=== PATIENT | male | born 1995 | race Caucasian/White ===

== ENCOUNTER 2018-06-24 10:11 | Emergency (ER) | payer MEDICAID ==
[~2018-06-24] VITALS: Ht 170.2 cm; Wt 79.1 kg
[2018-06-24 10:52] VITALS: Ht 170.2 cm; Wt 79.1 kg
[2018-06-24 13:08] VITALS: BP 149/81
== END 2018-06-24 13:09 | disposition home or self-care (01) ==
LOC: ED 10:11
DX: S92.531A Displaced fracture of distal phalanx of right lesser toe(s), initial encounter for closed fracture (principal); W22.8XXA Striking against or struck by other objects, initial encounter; Y93.89 Activity, other specified; Y92.89 Other specified places as the place of occurrence of the external cause; Y99.8 Other external cause status